=== PATIENT | female | born 1960 | race Caucasian/White ===

== ENCOUNTER 2017-04-10 13:52 | Emergency (ER) | payer OTHER ==
[2017-04-10 13:58] VITALS: TEMP 98.2
--- NOTE | 2017-04-10 14:27 | ED ---
General Adult HPI - General Chief complaint: Extremity Injury, Upper Stated complaint: rt shoulder pain Time Seen by Provider: 04/10/17 14:07 Source: patient, RN notes reviewed Mode of arrival: wheelchair Limitations: no limitations - History of Present Illness Initial comments: Patient is 56-year-old female with a significant past medical history for fibromyalgia, pinched nerve, who presents emergency room today with a chief complaint of pain to the right side of the neck and she does admit to numbness tingling sensation going down into the fourth and fifth digits. Patient denies any specific injury or trauma. States that shortly she overdid it cleaning the house a few days ago. She states that she was seen in the emergency room and for [facility]. She states that she has a friend that lives there and she lives in [facility]. She states that she's traveling back and forth. She states that she was set up to see a cannabis clinic and for when. She states she's going to try this for the pain. She states she does take morphine and Celebrex. Patient denies any other complaints or symptoms. Patient denies any recent fever, chills, shortness of breath, chest pain, back pain, abdominal pain, nausea or vomiting, dysuria or hematuria, constipation or diarrhea, headaches or visual changes, or any other complaints. - Related Data Home Medications Medication Instructions Recorded Confirmed Amitriptyline HCl [Elavil] 50 mg PO HS 04/10/17 04/10/17 Amoxicillin 2,000 mg PO ONCE PRN 04/10/17 04/10/17 Celecoxib [CeleBREX] 200 mg PO BID 04/10/17 04/10/17 DULoxetine HCL [Cymbalta] 30 mg PO DAILY 04/10/17 04/10/17 DULoxetine HCL [Cymbalta] 60 mg PO DAILY 04/10/17 04/10/17 Hydrochlorothiazide 25 mg PO DAILY 04/10/17 04/10/17 Melatonin 5 mg PO HS PRN 04/10/17 04/10/17 Morphine Sulfate [Ms Contin] 60 mg PO Q8HR 04/10/17 04/10/17 Omeprazole 20 mg PO DAILY 04/10/17 04/10/17 Orphenadrine [Norflex] 100 mg PO Q12H PRN 04/10/17 04/10/17 Pregabalin [Lyrica] 300 mg PO BID 04/10/17 04/10/17 Statex 10 Mg 10 mg PO QID PRN 04/10/17 04/10/17 predniSONE See Taper PO DAILY 04/10/17 04/10/17 Allergies Allergy/AdvReac Type Severity Reaction Status Date / Time barley Allergy Unknown Verified 04/10/17 14:11 buckwheat Allergy Unknown Verified 04/10/17 14:11 oats Allergy Unknown Verified 04/10/17 14:11 Sulfa (Sulfonamide Allergy Anaphylaxis Verified 04/10/17 14:11 Antibiotics) Review of Systems ROS Statement: Those systems with pertinent positive or pertinent negative responses have been documented in the HPI. ROS Other: All systems not noted in ROS Statement are negative. Past Medical History Past Medical History: No Reported History History of Any Multi-Drug Resistant Organisms: None Reported Past Surgical History: No Surgical Hx Reported Past Psychological History: Depression Smoking Status: Former smoker Past Alcohol Use History: None Reported Past Drug Use History: None Reported General Exam - General Exam Comments Initial Comments: General: The patient is awake and alert, in no distress, and does not appear acutely ill. Eye: Pupils are equal, round and reactive to light, extra-ocular movements are intact. No nystagmus. There is normal conjunctiva bilaterally. No signs of icterus. Ears, nose, mouth and throat: There are moist mucous membranes and no oral lesions. Neck: The neck is supple, there is no tenderness or JVD. Cardiovascular: There is a regular rate and rhythm. No murmur, rub or gallop is appreciated. Respiratory: Lungs are clear to auscultation, respirations are non-labored, breath sounds are equal. No wheezes, stridor, rales, or rhonchi. Gastrointestinal: Soft, non-distended, non-tender abdomen without masses or organomegaly noted. There is no rebound or guarding present. No CVA tenderness. Bowel sounds are unremarkable. Musculoskeletal: Good range of motion all areas. Patient does have tenderness diffusely throughout the cervical spine. There is no step-offs forms appreciated. No point tenderness to the right shoulder, right elbow, right hand or wrist. Strength 5/5. Sensation intact. Pulses equal bilaterally 2+. Neurological: A&O x 3. CN II-XII intact, There are no obvious motor or sensory deficits. Coordination appears grossly intact. Speech is normal. Skin: Skin is warm and dry and no rashes or lesions are noted. Psychiatric: Cooperative, appropriate mood & affect, normal judgment. Limitations: no limitations Course Vital Signs 04/10/17 04/10/17 13:55 14:50 Temperature 98.2 F Pulse Rate 115 H 99 Respiratory 18 20 Rate Blood Pressure 175/103 175/77 O2 Sat by Pulse 97 95 Oximetry Medical Decision Making - Medical Decision Making Patient x-ray reviewed does show degenerative changes abnormalities. results were discussed with the patient. Patient states that she's been trying follow- up the family doctor. Was discussed about following up for further evaluation and MRI. Patient was placed on steroids is still continuing is along muscle relaxant. She takes morphine for pain. Has history for myalgia. Strength and given to a cannabis clinic as well. Patient page here in the emergency room. Advised follow family doctor over the next 2 days. Advised return here to the emergency room symptoms increase worsen or for any other concerns. Case discussed in detail with attending physician Dr. Stoll. Disposition Clinical Impression: Cervical radiculopathy Disposition: HOME SELF-CARE Condition: Good Instructions: Cervical Radiculopathy (ED) Additional Instructions: Please follow-up with family doctor in the next 1-2 days. Please discuss further evaluation for possible MRI. Please return to emergency room if the symptoms increase or worsen or for any other concerns. Referrals: None,Stated [REFERRING] - 1-2 days Time of Disposition: 14:56
--- NOTE | 2017-04-10 14:46 | XR ---
EXAMINATION TYPE: XR cervical spine limited DATE OF EXAM: 04/10/2017 TECHNIQUE: Frontal, lateral, and open mouth view of the cervical spine are obtained. HISTORY: Pain COMPARISON: None FINDINGS: The cervical spine is visualized in its entirety from C1 thru the top of T1 level, it is s traightened in alignment without evidence of acute fracture or dislocation. The pre-vertebral soft t issue appears within normal limits. The C1-C2 articulation is within normal limits on the open mouth view. Vertebral body heights are maintained. There is moderate disc space narrowing and spurring from C4-C5 through C6-C7 levels. Overlying soft tissue is unremarkable. IMPRESSION: Straightening of cervical spine with moderate degenerative changes C4-C5 through C6-C7 le vels noted.
[2017-04-10 14:51] VITALS: BP 175/77; PULSE 99; RESP 20
[2017-04-10] MEDS ORDERED: HYDROmorphone 1 MG/ML 1 ML SYRINGE IM STA (14:54)
[2017-04-10] MEDS ORDERED: ONDANSETRON ODT 4 MG TAB PO STA (14:55)
== END 2017-04-10 15:34 | disposition home or self-care (01) ==
LOC: EC 13:52
DX: M54.12 Radiculopathy, cervical region (principal); F32.9 Major depressive disorder, single episode, unspecified; M79.7 Fibromyalgia; Z87.891 Personal history of nicotine dependence; Z79.1 Long term (current) use of non-steroidal anti-inflammatories (NSAID); Z79.52 Long term (current) use of systemic steroids; Z79.891 Long term (current) use of opiate analgesic; Z79.899 Other long term (current) drug therapy; Z88.2 Allergy status to sulfonamides; Z91.018 Allergy to other foods
CPT/HCPCS: 99283 ×2; 96372 ×2; 72040; J1170